=== PATIENT | female | born 1980 | race Caucasian/White ===

== ENCOUNTER 2016-10-19 13:28 | Outpatient (CLI) | payer BC | END 2016-10-19 13:29 | disposition home or self-care (01) | LOC: LABLEX 13:28 | PROVIDERS: ATTEND Family Medicine | DX: Z00.00 Encounter for general adult medical examination without abnormal findings (principal); Z12.4 Encounter for screening for malignant neoplasm of cervix | CPT/HCPCS: 88142; G0123 ==